=== PATIENT | male | born 1980 | race African-American/Black ===

== ENCOUNTER 2021-07-10 15:07 | Emergency (ER) | payer MEDICAID ==
[~2021-07-10] VITALS: Ht 180.3 cm; Wt 72.1 kg
[2021-07-10 15:08] VITALS: BP 105/63
--- NOTE | 2021-07-10 15:08 | NUR ---
Pt GUILLERMO via gurney to bed 10.
[2021-07-10] MEDS ORDERED: NACL 0.9% 1,000 ML IV ONE ×2 (15:20→16:10)
[2021-07-10] MEDS ORDERED: MORPHINE SULFATE 4 MG/ML SYR IVP ONE (15:20)
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
--- NOTE | 2021-07-10 15:26 | NUR ---
ekg performed at bedside. ekg reads sinus rhythm @ 91
--- NOTE | 2021-07-10 15:35 | NUR ---
BLOOD SPECIMENS GIVEN TO ACCOUNTING AUDITOR
--- NOTE | 2021-07-10 15:37 | NUR ---
RT AT BEDSIDE DOING ABG
[2021-07-10 15:44] LABS: BASOPHILS # (AUTO) 0.1 K/uL (0.00-0.22); BASOPHILS % (AUTO) 0.5 % (0.0-2.0); EOSINOPHILS % (AUTO) 0.2 % (0.0-4.0); HEMATOCRIT 29.7 % (36-52); LYMPHOCYTES # (AUTO) 0.9 K/uL (2.0-11.5); LYMPHOCYTES % (AUTO) 5.7 % (20.5-51.1); MEAN CORPUSCULAR HEMOGLOBIN 30 pg (27-31); MEAN CORPUSCULAR HGB CONC 34 g/dL (33-37); MEAN CORPUSCULAR VOLUME 87.7 fL (80-94); MONOCYTES # (AUTO) 1.3 K/uL (0.8-1.0); MONOCYTES % (AUTO) 8.8 % (1.7-9.3); NEUTROPHILS # (AUTO) 12.9 K/uL (1.8-7.7); NEUTROPHILS % (AUTO) 84.8 % (42.2-75.2); PLATELET COUNT (AUTO) 358 K/uL (140-450); RED BLOOD CELL COUNT(AUTO) 3.39 MIL/uL (4.20-6.10); RED CELL DISTRIBUTION WIDTH 14.2 % (11.6-13.7); WHITE BLOOD COUNT (AUTO) 15.3 K/uL (4.8-10.8)
[2021-07-10 16:01] LABS: ALBUMIN 2.3 g/dL (3.4-5.0); ANION GAP 12.2 (8-16); CARBON DIOXIDE 30.5 mmol/L (21-32); CREATININE 1.1 mg/dL (0.6-1.3); POTASSIUM 3.7 mmol/L (3.5-5.1); TOTAL BILIRUBIN 0.6 mg/dL (0.0-1.0)
--- NOTE | 2021-07-10 16:01 | NUR ---
RAD AT BEDSIDE
[2021-07-10] MEDS ORDERED: VANCOMYCIN 500 MG in DEXTROSE 5% 100 ML IV SCH ×2 (16:10→16:55)
[2021-07-10] MEDS ORDERED: CEFEPIME 2,000 MG in DEXTROSE 5% 100 ML IV ONE (16:10)
--- NOTE | 2021-07-10 16:14 | NUR ---
URINE COLLECTED VIA URINAL AND GIVEN TO COMPANY DOCTOR
[2021-07-10 16:28] LABS: APPEARANCE,URINE CLEAR (CLEAR); BILIRUBIN,URINE NEGATIVE (NEGATIVE); BLOOD, URINE 2+ (NEGATIVE); COLOR,URINE YELLOW (YELLOW); LEUKOCYTE ESTERASE ,URINE NEGATIVE (NEGATIVE); NITRITE, URINE NEGATIVE (NEGATIVE); UGLUCOSE NEGATIVE (NEGATIVE)
[2021-07-10] MEDS ORDERED: CEFEPIME 2,000 MG VIAL IV ONE (16:30)
[2021-07-10 16:40] LABS: BARBITURATE, URINE NEGATIVE ng/ml (NEG <=200); BENZODIAZEPINE, URINE NEGATIVE ng/mL (NEG <=200); CANNABINOID, URINE NEGATIVE ng/mL (NEG <=50); COCAINE, URINE NEGATIVE ng/mL (NEG <=300); OPIATE, URINE POSITIVE ng/mL (NEG <=2000); PHENCYCLIDINE SCREEN,URINE NEGATIVE ng/mL (NEG <=25)
[2021-07-10 16:57] LABS: CKMB RELATIVE INDEX 0.1 (0.0-2.5); CREATINE KINASE MB 0.6 ng/mL (0-3.6)
[2021-07-10 17:41] VITALS: BP 111/70
--- NOTE | 2021-07-10 18:01 | NUR ---
GINI CAAL SAMPLE COLLECTED AND WALKED TO LAB
--- NOTE | 2021-07-10 19:01 | NUR ---
PT REQUESTING FOOD, PT GIVEN SANDWHICH AND BAG OF FOOD. VSS.
--- NOTE | 2021-07-10 19:37 | NUR ---
Patient discharged with v/s stable. Written and verbal after care instructions given and explained. Patient verbalized understanding. Wheel Chair Assisted with to lobby. All questions addressed prior to discharge. Advised to follow up with PMD. homeless resource package, homeless waiver signed and given clothes and food.
[2021-07-10 19:56] LABS: RBC,URINE 11-20 (MOD) /HPF (0-5); WBC,URINE 0-5 /HPF (0-5)
== END 2021-07-10 19:37 | disposition home or self-care (01) ==
LOC: MED 15:07
DX: T81.40XA Infection following a procedure, unspecified, initial encounter (principal); Z20.822 Contact with and (suspected) exposure to COVID-19; F17.210 Nicotine dependence, cigarettes, uncomplicated; Z71.6 Tobacco abuse counseling; Z98.890 Other specified postprocedural states; Y92.89 Other specified places as the place of occurrence of the external cause
CPT/HCPCS: 36415; 71045; 73130; 73521; 80053; 80305; 81001; 82550; 82553; 83605; 83874; 83880; 84484; 85025; 85610; 85730; 87040; 87086; 87186; 87426; 93005; 96361; 96365; 96375; 99285; J0692; J2270; J7030